=== PATIENT | female | born 1970 | race Caucasian/White ===

== ENCOUNTER → 2016-11-22 | Outpatient (CLI) | payer BC ==
--- NOTE | 2016-11-22 15:53 | CT ---
EXAMINATION TYPE: CT ChestAbdPelvis w con DATE OF EXAM: 11/22/2016 3:44 PM COMPARISON: 08/17/2016 HISTORY: f/u for anal cancer CT DLP: 1433.9 mGycm CONTRAST: CT scan of the chest, abdomen and pelvis is performed without Oral Contrast and with IV Contrast, pat ient injected with 100 mL of Omnipaque 300. CT Chest: LUNGS: The lungs are clear and free of infiltrate. Stable basilar compressive atelectasis. No pulmona ry nodule or mass is detected. No pleural effusion or CT evidence of interstitial lung disease. MEDIASTINUM: Thoracic aorta is of normal caliber. The heart is not enlarged. No evidence for media stinal mass or adenopathy. HILAR STRUCTURES: No evidence for mass. No hilar adenopathy is appreciated. OTHER: No significant abnormality. CONTRAST CT ABDOMEN AND PELVIS FINDINGS: LIVER/GB: Stable moderate compatible hepatic steatosis and mild hepatomegaly. No calcified gallston es. No space occupying hepatic lesion. Biliary tree is of normal caliber. PANCREAS: No inflammation. No distinct mass. SPLEEN: No splenic enlargement. No lesion seen. ADRENALS: No nodule. No thickening. KIDNEYS/BLADDER: No hydronephrosis. No nephrolithiasis. No disctinct renal mass. BOWEL: Rectal fullness described on prior examination is not clearly identified on today's examinatio n. Nonvisualization of the appendix. Normal bowel caliber. No inflammation. GENITAL ORGANS: Left-sided para Adnexal cystic lesion is stable and measures approximately 2.6 [address] Ut erus and ovaries are otherwise unremarkable. LYMPH NODES: No greater than 1cm abdominal or pelvic lymph nodes are appreciated. AORTA: No significant abnormality. OSSEOUS STRUCTURES: No significant abnormality is seen. OTHER: No significant additional abnormality is seen. IMPRESSION: 1. Rectal fullness described on prior examination is not clearly identified on today's examination. 2.Stable moderate compatible hepatic steatosis and mild hepatomegaly. 3. Stable left sided ovarian cystic lesion.
== END | disposition home or self-care (01) ==
LOC: RADCTMAIN 13:25
PROVIDERS: ATTEND Internal Medicine Hematology & Oncology
DX: C21.0 Malignant neoplasm of anus, unspecified (principal); K76.0 Fatty (change of) liver, not elsewhere classified; N83.202 Unspecified ovarian cyst, left side; R16.0 Hepatomegaly, not elsewhere classified
CPT/HCPCS: 71260; 74177; Q9967

== ENCOUNTER → 2017-03-07 | Outpatient (CLI) | payer BC ==
--- NOTE | 2017-03-07 14:13 | CT ---
EXAMINATION TYPE: CT ChestAbdPelvis w con DATE OF EXAM: 03/07/2017 COMPARISON: Previous study dated 11/22/2016. HISTORY: Follow up of anal cancer CT DLP: 2204 mGycm Automated exposure control for dose reduction was used. TECHNIQUE: Helical acquisition through the abdomen and pelvis was obtained without oral contrast but following the intravenous administration of 100 mL of Omnipaque 300. The data was formatted in the a xial, coronal and sagittal projections. FINDINGS: Lungs are clear. There is an injection port in the upper anterior chest. Its tip is at the cavoatrial junction. There is no significant axillary, internal mammary, mediastinal or hilar adenopathy. There is no pleural or pericardial fluid. The heart is not enlarged. Within the abdomen, the liver is mildly prominent measuring 17 cm. There is fatty infiltration of the liver. Gallbladder and spleen are normal. Both adrenal glands are normal. The pancreas is unremarkable. Both kidneys demonstrate function and are morphologically normal. There is no significant retroperitoneal, iliac or inguinal adenopathy. The bladder is unremarkable. Uterus and ovaries are normal. The large bowel appears normal on today's examination. The appendix is not visualized. Small bowel loops are normal. No free fluid and no free air is identified. There is hypertrophic spondylosis in the lower dorsal spine. No bony destructive lesion is seen. IMPRESSION: 1. NO EVIDENCE OF RECURRENT OR METASTATIC DISEASE. 2. MILD HEPATOMEGALY AND FATTY INFILTRATION OF THE LIVER. 3. DEGENERATIVE CHANGE WITHIN THE SPINE.
== END | disposition home or self-care (01) ==
LOC: RADCTMAIN 12:40
PROVIDERS: ATTEND Internal Medicine Hematology & Oncology
DX: C21.0 Malignant neoplasm of anus, unspecified (principal); K76.0 Fatty (change of) liver, not elsewhere classified
CPT/HCPCS: 36415; 71260; 74177; Q9967; J1642

== ENCOUNTER → 2017-07-18 | Outpatient (CLI) | payer BC ==
--- NOTE | 2017-07-18 12:37 | CT ---
EXAMINATION TYPE: CT ChestAbdPelvis w con DATE OF EXAM: 07/18/2017 COMPARISON: 03/07/2017 and 11/22/2016 HISTORY: Anal CA CT DLP: 2162.6 mGycm. Automated Exposure Control for Dose Reduction was Utilized. CONTRAST: CT scan of the thorax, abdomen and pelvis is performed with IV Contrast, patient injected with 100 mL of Omnipaque 300. FINDINGS: LUNGS: The lungs are grossly clear, there is no concerning parenchymal mass or nodule identified. T here is no pleural effusion or pneumothorax seen. The tracheobronchial tree is patent. Bibasilar sub segmental dependent atelectasis is seen, right greater than left. MEDIASTINUM: Triangular shaped soft tissue attenuation within the superior mediastinum likely relates to residual thymic tissue and is unchanged from the prior. There are no greater than 1 cm hilar or m ediastinal lymph nodes. Calcified left hilar lymph nodes are seen, also unchanged from the prior. Rig ht-sided Mediport terminates in the high right atrium. No pericardial effusion is seen. LIVER/GB: The liver is diffusely hypoattenuated and of decreased enhancement in comparison to that of the splenic parenchyma with focal fatty sparing in segment IVb surrounding the gallbladder fossa and along the fissure for the ligamentum teres. Hepatic steatosis is again moderate. This finding does l imit evaluation for hepatic masses. Gallbladder is unremarkable. PANCREAS: No significant abnormality is seen. No ductal dilatation. SPLEEN: No significant abnormality is seen. ADRENALS: No significant abnormality is seen. KIDNEYS: No significant abnormality is seen. BOWEL: No enlarged lymph nodes are seen within the mesorectal fat. There is no presacral edema or sof t tissue. Rectum is nondistended. No thickening of the sigmoid colon is seen although evaluation is s uboptimal as oral contrast has not extended into the descending colon or sigmoid colon and these port ions of the colon are nondilated. No bowel enlargement is seen. Small bowel is unremarkable. GENITAL ORGANS: The left ovary is similar to the prior exam measuring up to 2.7 cm. Right ovary is no t identified. Uterus is unremarkable LYMPH NODES: Prominent left periaortic lymph nodes measure up to 9 mm and are seen on series 3 image 63 through 71.. OSSEOUS STRUCTURES: Mild degenerative changes are seen of the thoracolumbar and lumbosacral spine. No new suspicious osseous lesions are seen. IMPRESSION: 1. Stable prominent left periaortic lymph nodes in comparison to the prior exam measuring up to 9 mm in short axis. 2. Rectum is incompletely distended and suboptimally evaluated, however no local lymphadenopathy, pre sacral soft tissue fullness, or mesorectal fat stranding is appreciated. 3. Unchanged moderate hepatic steatosis.
== END | disposition home or self-care (01) ==
LOC: RADPROMAIN 11:23
PROVIDERS: ATTEND Internal Medicine Hematology & Oncology
DX: C21.0 Malignant neoplasm of anus, unspecified (principal); K76.0 Fatty (change of) liver, not elsewhere classified
CPT/HCPCS: 71260; 74177; Q9967; J1642

== ENCOUNTER → 2017-11-23 | Outpatient (CLI) | payer BC ==
--- NOTE | 2017-11-23 11:07 | CT ---
EXAMINATION TYPE: CT ChestAbdPelvis w con DATE OF EXAM: 11/23/2017 COMPARISON: 07/18/2017 and 03/07/2017 HISTORY: 47-year-old female follow-up Carcinoma of anus TECHNIQUE: Contiguous axial scanning of the chest, abdomen, and pelvis performed with IV Contrast, pa tient injected with 100 ml mL of Omnipaque 300. Delayed images through the kidneys were obtained. Cor onal/sagittal reconstructions performed. CT DLP: 2214 mGycm Automated exposure control for dose reduction was used. FINDINGS: Chest: Right anterior chest wall injection port with catheter tip at the lower SVC. Heart normal size without pericardial effusion. Aorta normal caliber with conventional arch vessel branching anatomy. Stable soft tissue density anterior mediastinum suggestive of residual thymic tissue. No thoracic lym phadenopathy. Some focal patchy atelectasis/scarring posteromedial right lung base. No consolidation or pleural eff usion otherwise seen. No suspicious pulmonary nodule or mass is identified. ABDOMEN: Liver remains enlarged measuring 19.4 cm craniocaudal with diffuse low-attenuation. No focal liver le elizabeth or biliary ductal dilatation. Portal venous system is patent. Gallbladder, adrenal glands, kidneys, spleen, and pancreas appear within normal limits. Left periaortic lymph nodes appear slightly more full primarily when compared with 03/07/2017, for exam ple, measuring 1.5 and 1.4 cm, axial image 72. No new mesenteric or retroperitoneal lymphadenopathy. Pelvis: Bladder urine distended. Uterus and left ovary are visualized. Right ovary not well seen. Pelvic phle boliths. No abnormal fluid collection in the pelvis or pelvic lymphadenopathy identified. Bones: Mild degenerative changes at the hips and right SI joint. Mild endplate spondylosis lower thoracic sp ine. No osseous destructive process. IMPRESSION: 1. LEFT PARAAORTIC LYMPHADENOPATHY APPEARS SLIGHTLY MORE FULL COMPARED TO 03/07/2017 BUT RELATIVELY SIMILAR TO 07/18/2017 MEASURING UP TO 1.5 CM. CLOSE FOLLOW-UP RECOMMENDED TO EXCLUDE PROGRESSION IN M ETASTATIC DISEASE. 2. OTHERWISE, NO OTHER EVIDENCE FOR METASTATIC DISEASE. 3. REDEMONSTRATED HEPATOMEGALY AND HEPATIC STEATOSIS.
== END | disposition home or self-care (01) ==
LOC: RADCTMAIN 08:09
PROVIDERS: ATTEND Internal Medicine Hematology & Oncology
DX: C21.0 Malignant neoplasm of anus, unspecified (principal); K76.0 Fatty (change of) liver, not elsewhere classified; R16.0 Hepatomegaly, not elsewhere classified; R59.1 Generalized enlarged lymph nodes
CPT/HCPCS: 71260; 74177; Q9967; J1642

== ENCOUNTER → 2018-03-13 | Outpatient (CLI) | payer BC ==
--- NOTE | 2018-03-13 13:08 | CT ---
EXAMINATION TYPE: CT ChestAbdPelvis w con DATE OF EXAM: 03/13/2018 COMPARISON: CT Chest Abdomen Pelvis With November 23, 2017 and older studies. PET/CT January 31, 2016. HISTORY: Anal CA progress study. Diagnosed and treated in 2016. CT DLP: 1639.8 mGycm. Automated Exposure Control for Dose Reduction was Utilized. CONTRAST: CT scan of the thorax, abdomen and pelvis is performed with oral and with IV Contrast, patient inject ed with 100 mL of Isovue 300. FINDINGS: LUNGS: There is persistent medial right basilar scarring. There is no new suspicious nodularity or ma sses. No pleural effusion or pneumothorax is present bilaterally. Tracheobronchial tree is patent. MEDIASTINUM: There are no greater than 1 cm hilar or mediastinal lymph nodes. No cardiomegaly or pe ricardial effusion is seen. OTHER: There is stable right internal jugular Mediport catheter. LIVER/GB: Liver remains low dense consistent with fatty infiltration. PANCREAS: No significant abnormality is seen. SPLEEN: No significant abnormality is seen. ADRENALS: No significant abnormality is seen. KIDNEYS: No significant abnormality is seen. BOWEL: Oral contrast reaches level of the splenic flexure. There is no suspicious small or large ivana l dilatation. GENITAL ORGANS: Uterus is surgically absent LYMPH NODES: Scar tissue at level of right groin axial image 114 is redemonstrated. Abnormal retroper itoneal adenopathy is redemonstrated, some confluent adenopathy just below left renal artery is again seen from axial images 63 through 68. There is fullness in the aortocaval window. There is new ossif ic destruction of right L3 vertebra axial image 70. Confluent adenopathy is noted at this level. Near complete Encasement of aorta is seen. No new pelvic adenopathy is noted. OSSEOUS STRUCTURES: New ossific destruction right L3 vertebra from adjacent adenopathy is seen. No ad ditional lytic or sclerotic osseous lesions are identified. OTHER: No significant additional abnormality is seen. IMPRESSION: Progressive retroperitoneal adenopathy with new right-sided L3 destruction. Consider radi ation oncology referral and/or treatment. A Yellow level critical message alert has been initiated for Brian Delaney MD via the [employer] on 03/13/2018 1:05 PM. This message alert has been sent to Brian Delaney MD via [employer] preferences provided by the clinician for the receipt of Radiology Critical Findings. Message ID [id number].
== END ==
LOC: RADPROMAIN 09:59
PROVIDERS: ATTEND Internal Medicine Hematology & Oncology
DX: Z03.89 Encounter for observation for other suspected diseases and conditions ruled out (principal); C21.0 Malignant neoplasm of anus, unspecified; R59.0 Localized enlarged lymph nodes
CPT/HCPCS: 71260; 74177; J1642; Q9967

== ENCOUNTER → 2018-03-31 | Outpatient (CLI) | payer BC ==
[2018-03-31 16:23] LABS: Anion Gap 11 mmol/L; Basophils % (A) 1 %; Blood Urea Nitrogen 15 mg/dL (7-17); Calcium 9.7 mg/dL (8.4-10.2); Carbon Dioxide 31 mmol/L (22-30); Chloride 104 mmol/L (98-107); Eosinophils # (A) 0.1 k/uL (0-0.7); Eosinophils % (A) 2 %; Glucose 99 mg/dL (74-99); HCT 44.2 % (34.0-46.0); HGB 14.2 gm/dL (11.4-16.0); Lymphocytes # (A) 1.4 k/uL (1.0-4.8); Lymphocytes % (A) 22 %; MCH 29.4 pg (25.0-35.0); MCHC 32.2 g/dL (31.0-37.0); MCV 91.5 fL (80.0-100.0); Mean Platelet Volume 6.1; Monocytes # (A) 0.5 k/uL (0-1.0); Monocytes % (A) 7 %; Neutrophils # (A) 4.4 k/uL (1.3-7.7); Neutrophils % (A) 66 %; Platelet Count 330 k/uL (150-450); Potassium 4.5 mmol/L (3.5-5.1); RBC 4.83 m/uL (3.80-5.40); Sodium 146 mmol/L (137-145); WBC 6.6 k/uL (3.8-10.6)
[2018-03-31 16:27] LABS: Partial Thromboplastin Time 27.3 sec (22.0-30.0); Prothrombin Time 9.5 sec (9.0-12.0)
[2018-03-31 16:33] LABS: Appearance,Urine Clear (Clear); Bilirubin,Urine Negative (Negative); Blood,Urine Negative (Negative); Color,Urine Yellow; Glucose,Urine (UA) Negative (Negative); Ketones,Urine Negative (Negative); Leukocyte Esterase,Urine Negative (Negative); Nitrite,Urine Negative (Negative); PH, Urine 6.5 (5.0-8.0); Protein,Urine Negative (Negative); Specific Gravity,Urine 1.013 (1.001-1.035); Urobilinogen,Urine <2.0 mg/dL (<2.0)
== END | disposition home or self-care (01) ==
LOC: LABPAT 14:49
PROVIDERS: ATTEND Orthopaedic Surgery Orthopaedic Surgery of the Spine
DX: Z01.812 Encounter for preprocedural laboratory examination (principal); M89.8X9 Other specified disorders of bone, unspecified site
CPT/HCPCS: 80048; 81003; 85025; 85610; 85730; 87070; 93005

== ENCOUNTER 2018-04-03 14:16 | Day surgery (SDC) | payer BC ==
[~2018-04-03 14:16] MED LIST: DEXAMETHASONE SOD PHOSPHATE 10 MG/ML 1 ML VIAL IV ONE; LACTATED RINGERS 1,000 ML IV SCH; MIDAZOLAM 2 MG/2 ML VIAL IV PRN; ONDANSETRON 4 MG/2 ML VIAL IVP ONE; SCOPOLAMINE 1.5MG/72HR PATCH TRANSDERM ONE; ceFAZolin IN SWFI 2 GM/20 ML SYRINGE IVP ONE; fentaNYL (PF) 50 MCG/ML 2 ML AMP IV PRN
[2018-04-03] MEDS ORDERED: LIDOCAINE 1% 20 ML VIAL (10MG/ML) FOR IV START INTRADERMA ONE (14:34)
[2018-04-03] MEDS ORDERED: SUCCINYLCHOLINE CHLORIDE 100 MG/5 ML SYR IV ONE (16:56)
[2018-04-03] MEDS ORDERED: LIDOCAINE 1% INJ 10MG/ML (20 ML MDV) ONE (16:56)
[2018-04-03] MEDS ORDERED: KETOROLAC 30 MG/ML 1 ML VIAL ONE (16:56)
[2018-04-03] MEDS ORDERED: LABETALOL 5 MG/ML VIAL MDV ONE (16:56)
[2018-04-03] MEDS ORDERED: MORPHINE SULFATE 10 MG/ML SYRINGE ONE (16:56)
[2018-04-03] MEDS ORDERED: fentaNYL (PF) 50 MCG/ML 2 ML AMP ONE (16:56)
[2018-04-03] MEDS ORDERED: MIDAZOLAM 2 MG/2 ML VIAL ONE (16:56)
[2018-04-03] MEDS ORDERED: PROPOFOL 10 MG/ML 20 ML VIAL IV ONE (16:56)
[2018-04-03] MEDS ORDERED: BUPIVACAINE (PF) 0.5% 30 ML VIAL SQ ONE (17:23)
[2018-04-03] MEDS ORDERED: IOPAMIDOL-370 50ML BTL MISCELLANE ONE (17:24)
[2018-04-03] MEDS ORDERED: HYDROmorphone 0.5 MG/0.5 ML SYRINGE IVP PRN ×2 (17:50)
[2018-04-03] MEDS ORDERED: BENZOCAINE/MENTHOL LOZENG 1 EACH LOZENGE MUCOUS MEM PRN (17:50)
[2018-04-03] MEDS ORDERED: ONDANSETRON 4 MG/2 ML VIAL IVP PRN (17:51)
[2018-04-03] MEDS ORDERED: KETOROLAC 30 MG/ML 1 ML VIAL IVP PRN (17:51)
[2018-04-03] MEDS ORDERED: HYDROcodone/APAP 5-325MG 1 EACH TAB PO PRN ×2 (17:51)
[2018-04-03] MEDS ORDERED: IBUPROFEN 600 MG TAB PO PRN (17:51)
[2018-04-03] MEDS ORDERED: SODIUM CHLORIDE 0.9% 1,000 ML IV SCH (18:00)
--- NOTE | 2018-04-03 18:04 | P.OP ---
Date of Procedure: 04/03/18 Preoperative Diagnosis: L3 pathologic compression fracture Low back pain Postoperative Diagnosis: Same Anesthesia: GETA Pathology: other (L3 vertebral body biopsy sent to pathology in formalin, bone marrow aspirate of L3 sent to pathology) Condition: stable Disposition: PACU Description of Procedure: BRIEF OPERATIVE NOTE Preoperative Diagnosis: L3 pathologic compression fracture , low back pain Postoperative Diagnosis: Same Procedure: Vertebral body biopsy of L3 with bone marrow aspirate of L3 to be sent to pathology kyphoplasty of L3 Use of biplanar fluoroscopic guidance Surgeon: Dr. Virgen Library Science Instructor: Dustin Lee is present throughout the entire the case persistence during positioning, dissection, exposure, visualization, and all crucial elements of the case as well as closure. Anesthesia: General anesthesiaPer Dr. Howard Estimated blood loss: Less than 10 mL Specimen: Vertebral body biopsy sent to pathology in formalinAs well as a bone marrow aspirate approximately 5 mL Complications: None apparent Components implanted: Bone cement Disposition: To recovery room in good stable condition. OPERATIVE INDICATIONS The patient has been having issues in their back. And was found have evidence of a lytic lesion at L3 vertebral body. She has a history of anal cancer and underwent treatment in the past with her presumed care. However when she was found have this lytic lesion at L3 she has been having for further workup for potential treatment of the area and potential recurrence of the pathology. She is seen radiation oncology as well as oncology service and they asked us to obtain a vertebral body biopsy of the L3 vertebral body. I felt that the patient may have some benefit with kyphoplasty cement augmentation at the L3 vertebral body as well given her pain at her back. I conferred with oncology service as well and they were agreeable. We discussed various treatment options including surgery, and the patient wishes to proceed with surgery We discussed the risk, patient's alternatives and benefits of surgery including but not limited to, risk of bleeding risk of infection, risk of need for further surgery, risk of decreased, loss of motion, loss of function, cement extravasation, nerve damage, paralysis, heart attack, blindness and . OPERATIVE SUMMARY After discussing all the risks, patient alternatives and benefits at length, the patient elected to proceed with surgical intervention, signed informed consent, and presented for their procedure. The patient was seen and examined in the preoperative holding area and the surgical site was marked. The patient was given antibiotics and brought to the operating room. The patient was sedated and intubated by anesthesia in standard fashion. The patient was positioned on to the operating room table in a prone position on the appropriate well-padded and well molded bilateral chest rolls. We were careful to pad any bony prominences and pressure points. We were careful to maintain the patient's cervical spine and good neutral alignment and position throughout. We used 2 C-arm machines to establish biplanar fluoroscopic guidance in AP and lateral positions. We were able to localize the fractures appropriately At L3. The patient was prepped and draped in a normal standard fashion. An appropriate timeout and keystone protocol performed. We were able to proceed with the surgery. The local wound area was infiltrated with local anesthetic. An incision was made over the lateral aspect of the pedicle over the appropriate levels with a small 2 mm stab incision On the right side. Intraoperative fluoroscopy was taken which showed a marker at the appropriate level At L3. With the appropriate level positively confirmed, I was able to position a sharp trocar over the lateral aspect of the pedicle. As able to advance the trocar into the pedicle and into the posterior aspect of vertebral body being careful to avoid penetration cephalad caudad or medially. The trocar was placed appropriately into the posterior aspect of vertebral body at the appropriate levels At L3 on the right. This was confirmed with C-arm guidance. With the trocar intact I was then able to take a bone biopsy with a biopsy punch or a bony drill. there is very little bony substance remaining within the vertebral body of L3 and there was soft tissue material within the body of L3 though I was able to get a biopsy of and passed off for pathology. I also then aspirated approximately I cc of bone marrow aspirate to be sent to pathology as well. The biopsy specimen was passed off to be sent to pathology in formalin. I was then able to place the kyphoplasty balloon within the vertebral body. The position was checked on C-arm. I was able to inflate the balloon under low pressure and visualization with C-arm. The balloon was well enclosed within the vertebral body. The cement was prepared. With the cement at appropriate working condition the balloons were deflated and removed. I was able to place bony cement with trocar with the cement delivery device under low pressure. It had good fill within the vertebral body. There is no evidence of any extravasation of the cement posteriorly toward the canal. The cement was well contained at the appropriate levels Of L3. The cement was allowed to cure appropriately. The trochars removed and final images were taken on C-arm. This showed the cement at the appropriate levels. We were able to proceed with closure. The wound was cleaned and dried and dressed with the appropriate dressing. The drapes were broken down. The patient was gently rolled back onto their hospital bed being careful to maintain their cervical spine and good neutral alignment and position. They were woken up by anesthesia, extubated, and brought to the recovery room in good stable condition. The patient will be admitted to the hospital for observation and for appropriate postoperative care, medical management and monitoring. We will continue to follow them closely about the postoperative course.
[2018-04-03 18:05] VITALS: TEMP 97.2
[2018-04-03 18:13] VITALS: RESP 16
[2018-04-03 19:21] VITALS: BP 142/78; PULSE 92
--- NOTE | 2018-04-04 08:33 | FL ---
EXAMINATION TYPE: FL guidance operating room DATE OF EXAM: 04/03/2018 HISTORY: Flouroscopy time 43 seconds of fluoroscopy provided. IMPRESSION: 1. Fluoroscopy time.
== END 2018-04-03 19:48 | disposition home or self-care (01) ==
LOC: OR 14:16
PROVIDERS: ATTEND Orthopaedic Surgery Orthopaedic Surgery of the Spine
DX: C79.51 Secondary malignant neoplasm of bone (principal); C79.52 Secondary malignant neoplasm of bone marrow; M48.56XA Collapsed vertebra, not elsewhere classified, lumbar region, initial encounter for fracture; M48.061 Spinal stenosis, lumbar region without neurogenic claudication; M47.816 Spondylosis without myelopathy or radiculopathy, lumbar region; R53.1 Weakness; Z85.048 Personal history of other malignant neoplasm of rectum, rectosigmoid junction, and anus; Z92.3 Personal history of irradiation; Z92.21 Personal history of antineoplastic chemotherapy; Z87.891 Personal history of nicotine dependence
CPT/HCPCS: 88305; 88342; 88307; 88311; 88341; 22514; C1713; J2250; J1100; J2270; J2405; J2001; J3010; J1885; J0330; J2704; J0690; Q9967

== ENCOUNTER → 2018-04-08 | Outpatient (CLI) | payer BC ==
--- NOTE | 2018-04-10 12:14 | PE ---
Nuclear medicine PET/CT HISTORY: Anal carcinoma, subsequent Patient received 12.5 mCi F-18 intravenously in delayed scanning was performed from the skull base to the thighs. Localization and attenuation correction CT scan was performed. Correlation to CT chest abdomen pelvis 03/13/2018 Neck and chest: There is no evident lung mass. No adenopathy or suspicious hypermetabolic uptake. Rig ht-sided Port-A-Cath is present, distal tip is within the region of the cavoatrial junction. Abdomen pelvis: Low density within the liver likely represents hepatic steatosis. There are retroperi toneal nodes present. SUV range approximately 3.94 retrocrural node on the left to periaortic nodes o n the left, SUV 11. There may be involvement of the mid ureter on the left the retrocrural nodes, the re is left-sided hydronephrosis persisting. Only mild anal uptake, SUV 4.5. The lumbar vertebral body shows post vertebroplasty change and shows SUV 14.1. IMPRESSION: Metastatic disease as described.
== END | disposition home or self-care (01) ==
LOC: RADPETMAIN 11:31
PROVIDERS: ATTEND Internal Medicine Hematology & Oncology
DX: C21.0 Malignant neoplasm of anus, unspecified (principal); C79.9 Secondary malignant neoplasm of unspecified site
CPT/HCPCS: 78815; A9552

== ENCOUNTER → 2018-08-23 | Outpatient (CLI) | payer BC ==
[2018-08-23 11:11] LABS: Blood Urea Nitrogen 14 mg/dL (7-17)
--- NOTE | 2018-08-23 14:47 | CT ---
EXAMINATION TYPE: CT ChestAbdPelvis w con DATE OF EXAM: 08/23/2018 INDICATION: Follow up scan, anal carcinoma COMPARISON: PET/CT 04/08/2018 CT DLP: 2102 mGycm CONTRAST: Performed with Oral Contrast and with IV Contrast, patient injected with 100 mL of Isovue 300. TECHNIQUE: Axial images at 5 mm thick sections. Reconstructed images in the coronal plane. Delayed images through the kidneys. FINDINGS: CT CHEST: Portion of the thyroid visualized is normal. No suspicious lung nodules or focal infiltrates are present. No enlarged mediastinal or hilar adenopathy is evident. The ascending aorta diameter at the level of the main pulmonary artery is 2.8 cm. The main pulmonary artery diameter at the bifurcation is 2.[address] ABDOMEN: No suspicious enlarged adenopathy. Liver: There is moderate fatty infiltration to the liver. No discrete masses or cysts are evident. Spleen: Normal Pancreas: Normal Adrenal glands: The adrenal glands are normal. Gallbladder: Normal Kidneys: No masses are evident. No hydronephrosis is present. No cysts are present. Delayed images were obtained through the kidneys, which remain unremarkable. Aorta: Vascular calcification is within the aorta. Inferior vena cava: Normal. CT PELVIS: Loops of bowel within the abdomen and pelvis are normal. There are loops of bowel which are incom pletely distended or lack oral contrast limiting their evaluation. Appendix: Not identified. No suspicious tubular structures are evident. No inflammatory changes are e vident. Urinary bladder: Normal. Genitourinary structures: Uterus is unremarkable. Adnexal regions appear within normal limits. There may be a small cyst on the left ovary with a transverse dimension 1.0 cm. Osseous structures: No suspicious lytic or sclerotic lesions. Vertebral plasty is been performed L3. Some mild superior endplate compression of L2 is present. Some compression of T12 is present. No post erior wall displacement is evident. IMPRESSIONS: 1.
== END | disposition home or self-care (01) ==
LOC: RADPROMAIN 10:26
PROVIDERS: ATTEND Internal Medicine Hematology & Oncology
DX: Z03.89 Encounter for observation for other suspected diseases and conditions ruled out (principal); C21.0 Malignant neoplasm of anus, unspecified
CPT/HCPCS: 82565; 84520; 71260; 74177; J1642; Q9967

== ENCOUNTER → 2018-12-19 | Outpatient (CLI) | payer BC ==
--- NOTE | 2018-12-19 16:15 | CT ---
EXAMINATION TYPE: CT ChestAbdPelvis w con DATE OF EXAM: 12/19/2018 COMPARISON: 08/23/2018 and 04/08/2018 HISTORY: 48 year-old female follow-up Carcinoma anus. TECHNIQUE: Contiguous axial scanning of the chest, abdomen, and pelvis performed with IV Contrast, pa tient injected with 100 mL of Isovue M300. Delayed images through the kidneys were obtained. Coronal/ sagittal reconstructions performed. CT DLP: 2053.7 mGycm Automated exposure control for dose reduction was used. FINDINGS: CHEST: Heart normal size without pericardial effusion. Aorta normal caliber with conventional arch vessel branching anatomy. Right anterior chest wall injection port with catheter tip at the cavoatrial junction. No thoracic lymphadenopathy. Some strandy dependent areas of atelectasis. No consolidation or pleural effusion. ABDOMEN: Liver enlarged at 20.4 cm with marked low attenuation areas of focal fat along the gallbladder fossa. Portal venous system is patent. No biliary ductal dilatation. Gallbladder, adrenal glands, spleen, and pancreas appear within normal limits. Mild fullness of the bilateral renal collecting systems but with symmetric uptake and excretion of co ntrast from the kidneys arguing against any obstructive uropathy. No recurrent retroperitoneal lymphadenopathy is identified. Minimal residual soft tissue thickening a long the left periaortic region, for example, on for 2 axial image 75. No dilated small bowel, free fluid, or free air. No mesenteric lymphadenopathy. Oral contrast progres sed to the proximal sigmoid. No pericolonic inflammatory change. PELVIS: Bladder urine distended. Uterus and ovaries are visualized and no abnormal fluid collection in the pe lvis or pelvic lymphadenopathy seen. Left-sided pelvic phleboliths. BONES: Mild degenerative changes of the hips. Facet arthropathy mid to lower lumbar spine and endplate spond ylosis lower thoracic spine. Vertebral compression fracture of L3 vertebral body with prior vertebrop lasty change. Additional endplate deformities of T11, T12, L2 also remain unchanged. IMPRESSION: 1. NO RECURRENT RETROPERITONEAL OR OTHER LYMPHADENOPATHY OR OTHERWISE ANY EVIDENCE FOR METASTATIC DIS EASE. MINIMAL RESIDUAL SOFT TISSUE THICKENING ALONG THE LEFT PARA-AORTIC REGION IS UNCHANGED FROM . 2. HEPATOMEGALY (20.4 CM) WITH MARKED HEPATIC STEATOSIS.
== END | disposition home or self-care (01) ==
LOC: RADPROMAIN 13:01
PROVIDERS: ATTEND Internal Medicine Hematology & Oncology
DX: K76.0 Fatty (change of) liver, not elsewhere classified (principal); R16.0 Hepatomegaly, not elsewhere classified; C21.0 Malignant neoplasm of anus, unspecified
CPT/HCPCS: 71260; 74177; J1642; Q9967

== ENCOUNTER → 2019-04-02 | Outpatient (CLI) | payer BC ==
--- NOTE | 2019-04-02 13:21 | CT ---
EXAMINATION TYPE: CT ChestAbdPelvis w con DATE OF EXAM: 04/02/2019 COMPARISON: 12/19/2018 HISTORY: Follow up scan per patient CT DLP: 2169.8 mGycm Automated exposure control for dose reduction was used. CONTRAST: CT scan of the chest, abdomen and pelvis is performed with Oral Contrast and with IV Contrast, patien t injected with 100 mL of Isovue 300. FINDINGS: CHEST: Heart normal size without pericardial effusion. Aorta normal caliber with conventional arch vessel branching anatomy. Right anterior chest wall injection port with catheter tip at the cavoatrial junction. No thoracic lymphadenopathy. Some strandy dependent areas of atelectasis. No consolidation or pleural effusion. ABDOMEN: Liver enlarged at 20.4 cm with marked low attenuation areas of focal fat along the gallbladder fossa. Portal venous system is patent. No biliary ductal dilatation. Gallbladder, adrenal glands, spleen, and pancreas appear within normal limits. Mild fullness of the bilateral renal collecting systems but with symmetric uptake and excretion of co ntrast from the kidneys arguing against any obstructive uropathy. No recurrent retroperitoneal lymphadenopathy is identified. Minimal residual soft tissue thickening a long the left periaortic region, for example, on for 2 axial image 75. No dilated small bowel, free fluid, or free air. No mesenteric lymphadenopathy. Oral contrast progres sed to the proximal sigmoid. 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 TECHNIQUE: Contiguous axial scanning of the chest, abdomen, and pelvis performed with IV Contrast, patient injected with 100 mL of Isovue M300. Delayed images through the kidneys were obtained. Coronal/sagittal reconstructions performed. CT DLP: 2053.7 mGycm Automated exposure control for dose reduction was used. FINDINGS: CHEST: Heart normal size without pericardial effusion. Aorta normal caliber with conventional arch vessel branching anatomy. Right anterior chest wall injection port with catheter tip at the cavoatrial junction. No thoracic lymphadenopathy. Some strandy dependent areas of atelectasis. No consolidation or pleural effusion. ABDOMEN: Liver enlarged at 20.4 cm with marked low attenuation areas of focal fat along the gallbladder fossa. Portal venous system is patent. No biliary ductal dilatation. Gallbladder, adrenal glands, spleen, and pancreas appear within normal limits. Mild fullness of the bilateral renal collecting systems but with symmetric uptake and excretion of contrast from the kidneys arguing against any obstructive uropathy. No recurrent retroperitoneal lymphadenopathy is identified. Minimal residual soft tissue thickening along the left periaortic region. No dilated small bowel, free fluid, or free air. No mesenteric lymphadenopathy. Oral contrast progressed to the proximal sigmoid. No pericolonic inflammatory change. PELVIS: Bladder urine distended. Uterus and ovaries are visualized and no abnormal fluid collection in the pelvis or pelvic lymphadenopathy seen. Left-sided pelvic phleboliths. BONES: Mild degenerative changes of the hips. Facet arthropathy mid to lower lumbar spine and endplate spondylosis lower thoracic spine. Vertebral compression previous fracture of L3 vertebral body with prior vertebroplasty change. Additional endplate deformities of T11, T12, L2 also remain unchanged. IMPRESSION: 1. NO RECURRENT RETROPERITONEAL OR OTHER LYMPHADENOPATHY OR OTHERWISE ANY EVIDENCE FOR METASTATIC DIS EASE. MINIMAL RESIDUAL SOFT TISSUE THICKENING ALONG THE LEFT PARA-AORTIC REGION IS UNCHANGED FROM pre vious. 2. HEPATOMEGALY (20.4 CM) WITH MARKED HEPATIC STEATOSIS.
== END | disposition home or self-care (01) ==
LOC: RADPROMAIN 09:44
PROVIDERS: ATTEND Internal Medicine Hematology & Oncology
DX: K76.0 Fatty (change of) liver, not elsewhere classified (principal); M79.89 Other specified soft tissue disorders
CPT/HCPCS: 71260; 74177; J1642; Q9967

== ENCOUNTER → 2019-07-03 | Outpatient (CLI) | payer BC ==
--- NOTE | 2019-07-03 10:50 | CT ---
EXAMINATION TYPE: CT ChestAbdPelvis w con DATE OF EXAM: 07/03/2019 COMPARISON: April 02, 2019 HISTORY: Anal Cancer CT DLP: 2412 mGycm CONTRAST: CT scan of the chest, abdomen and pelvis is performed with Oral Contrast and with IV Contrast, patien t injected with 100 ml mL of Isovue 300. CT Chest: LUNGS: The lungs are clear and free of infiltrate or atelectasis. No pulmonary nodule or mass is det ected. No pleural effusion or CT evidence of interstitial lung disease. MEDIASTINUM: Thoracic aorta is of normal caliber. The heart is not enlarged. No evidence for media stinal mass or adenopathy. HILAR STRUCTURES: No evidence for mass. No hilar adenopathy is appreciated. OTHER: No significant abnormality. CONTRAST CT ABDOMEN AND PELVIS FINDINGS: LIVER/GB: Fatty liver noted with mild hepatomegaly. No calcified gallstones. No space occupying hep atic lesion. Biliary tree is of normal caliber. PANCREAS: No inflammation. No distinct mass. SPLEEN: No splenic enlargement. No lesion seen. ADRENALS: No nodule. No thickening. KIDNEYS/BLADDER: No hydronephrosis. No nephrolithiasis. No distinct renal mass. No evidence for tu mor recurrence. BOWEL: Normal appendix. Normal bowel caliber. No inflammation. GENITAL ORGANS: No gross abnormality. LYMPH NODES: No greater than 1cm abdominal or pelvic lymph nodes are appreciated. AORTA: No significant abnormality. OSSEOUS STRUCTURES: No significant abnormality is seen. OTHER: No significant additional abnormality is seen. IMPRESSION: 1. Fatty liver with hepatomegaly. No space-occupying lesion or metastatic disease identified at this time.
== END | disposition home or self-care (01) ==
LOC: RADPROMAIN 08:13
PROVIDERS: ATTEND Internal Medicine Hematology & Oncology
DX: C21.0 Malignant neoplasm of anus, unspecified (principal); K76.0 Fatty (change of) liver, not elsewhere classified; R16.0 Hepatomegaly, not elsewhere classified
CPT/HCPCS: 71260; 74177; J1642; Q9967

== ENCOUNTER → 2019-10-31 | Outpatient (CLI) | payer BC ==
--- NOTE | 2019-10-31 14:17 | CT ---
EXAMINATION TYPE: CT ChestAbdPelvis w con DATE OF EXAM: 10/31/2019 COMPARISON: 07/03/2019, 04/02/2019, and 12/19/2018 HISTORY: 49-year-old female Follow up Malignant neoplasm of anus, unspecified TECHNIQUE: Contiguous axial scanning of the chest, abdomen, and pelvis performed with IV Contrast, pa tient injected with 100 mL of Isovue 300. Delayed images through the kidneys were obtained. Coronal/s agittal reconstructions performed. CT DLP: 1942.8 mGycm Automated exposure control for dose reduction was used. FINDINGS: CHEST: Heart normal size without pericardial effusion. Aorta normal caliber with conventional arch vessel branching anatomy. Right anterior chest wall injection port with catheter tip at the cavoatrial junction. Some mild strandy soft tissue density anterior mediastinum is unchanged, likely either some residual or hyperplastic thymus. No thoracic lymphadenopathy by CT size criteria. Small calcified left hilar lymph nodes. Mild centrilobular emphysema. Mild dependent atelectasis posterior lung bases. No consolidation or pl eural effusion. ABDOMEN: Severe hepatic steatosis. No focal liver lesion identified. Portal venous system is patent. No biliar y ductal dilatation. Gallbladder, adrenal glands, kidneys, spleen, and pancreas appear within normal limits. No dilated small bowel, free fluid, or free air. No mesenteric or retroperitoneal lymphadenopathy. Mi nimal soft tissue thickening along the left retroperitoneum stable back to at least 12/19/2018. Oral contrast progressed to the cecum. Scattered multiple moderate stool in the right side of the col on. A couple diverticula within the proximal sigmoid. No pericolonic inflammatory change. PELVIS: Bladder is urine distended. Multiple pelvic phleboliths. Uterus is anteverted. What appears to be the left ovary is visualized. Right ovary not clearly seen. No abnormal fluid collection the pelvis or p elvic lymphadenopathy. BONES: Facet arthropathy lower lumbar spine. Prior vertebroplasty involving L3 vertebral body. Superior endp late is noted of T11 and L2 vertebral bodies as well as mild anterior wedging of T12 all unchanged ba ck to at least 12/19/2018 compatible with chronic injuries. IMPRESSION: 1. NO EVIDENCE FOR DISEASE RECURRENCE. MILD SOFT TISSUE THICKENING ALONG THE LEFT RETROPERITONEUM STA BLE BACK TO AT LEAST 12/19/2018. 2. COPD WITH MILD EMPHYSEMA. 3. SEVERE HEPATIC STEATOSIS REDEMONSTRATED.
== END | disposition home or self-care (01) ==
LOC: RADPROMAIN 09:45
PROVIDERS: ATTEND Internal Medicine Hematology & Oncology
DX: C21.0 Malignant neoplasm of anus, unspecified (principal); J43.9 Emphysema, unspecified; K76.0 Fatty (change of) liver, not elsewhere classified
CPT/HCPCS: 71260; 74177; J1642; Q9967

== ENCOUNTER → 2020-02-20 | Outpatient (CLI) | payer BC ==
[2020-02-20 18:56] LABS: Ferritin 809.3 ng/mL (10.0-291.0)
[2020-02-20 19:23] LABS: Hepatitis B Surface Antigen Non-Reactive (Non-Reactive); Hepatitis C IgG Antibody Non-Reactive (Non-Reactive)
[2020-02-20 20:03] LABS: % Iron Saturation 29.16 (12.00-45.00); African American GFR (CKD) 98.9 (60.0-200.0); Albumin 4.5 g/dL (3.80-4.90); Albumin/Globulin Ratio 2.14 (1.60-3.17); Anion Gap 10.8 mmol/L (4.00-12.00); BUN/Creat Ratio 16.25 Ratio (12.00-20.00); Calcium 9.7 mg/dL (8.7-10.3); Carbon Dioxide 28.2 mmol/L (21.6-31.8); Globulin 2.1 g/dL (1.6-3.3); Non-African American GFR(CKD) 85.4 (60.0-200.0); Potassium 4.3 mmol/L (3.5-5.5); Total Bilirubin 0.4 mg/dL (0.3-1.2); Total Protein 6.6 g/dL (6.2-8.2)
[2020-02-21 12:42] LABS: Ceruloplasmin 23.4 mg/dL (20.0-60.0)
[2020-02-21 15:24] LABS: ANA Pattern Centromere
== END | disposition home or self-care (01) ==
LOC: LABWHC1 10:37
PROVIDERS: ATTEND Internal Medicine Gastroenterology
DX: K76.0 Fatty (change of) liver, not elsewhere classified (principal); R94.5 Abnormal results of liver function studies
CPT/HCPCS: 36415; 80053; 82103; 82390; 82728; 83516; 83540; 83550; 86038; 86039; 86803; 87340

== ENCOUNTER → 2020-02-28 | Outpatient (CLI) | payer BC ==
--- NOTE | 2020-02-28 14:22 | CT ---
EXAMINATION TYPE: CT ChestAbdPelvis w con DATE OF EXAM: 02/28/2020 COMPARISON: 10/31/2019, 07/03/2019, 04/02/2019 HISTORY: 49-year-old female follow up anal cancer TECHNIQUE: Contiguous axial scanning of the chest, abdomen, and pelvis performed with IV Contrast, pa tient injected with 100 mL of Isovue 300. Delayed images through the kidneys were obtained. Coronal/s agittal reconstructions performed. CT DLP: 2062.6 mGycm Automated exposure control for dose reduction was used. FINDINGS: CHEST: Heart normal size without pericardial effusion. Aorta normal caliber with conventional arch vessel branching anatomy. Right anterior chest wall injection port with catheter tip at the cavoatrial junction. Some mild strandy soft tissue density anterior mediastinum is unchanged, likely either some residual or hyperplastic thymus. No thoracic lymphadenopathy by CT size criteria. Small calcified left hilar lymph nodes. Minimal centrilobular emphysema. Mild dependent atelectasis posterior lung bases. No consolidation or pleural effusion. ABDOMEN: Severe hepatic steatosis. Some fatty sparing along the gallbladder fossa. No focal liver lesion ident ified. Portal venous system is patent. No biliary ductal dilatation. Gallbladder, adrenal glands, kidneys, spleen, and pancreas appear within normal limits. No dilated small bowel, free fluid, or free air. No mesenteric or retroperitoneal lymphadenopathy. Minimal soft tissue thickening along the left retroperitoneum stable back to at least 12/19/2018. Oral contrast progressed to the cecum. Scattered mild to moderate stool in the right side of the colo n. A couple diverticula within the proximal sigmoid. No pericolonic inflammatory change. PELVIS: Bladder is urine distended. Multiple pelvic phleboliths. Uterus is anteverted. What appears to be the left ovary is visualized. Right ovary not clearly seen. No abnormal fluid collection the pelvis. 1.4 cm heterogeneous nodularity along the right lateral aspect of the rectosigmoid junction, axial image 100 was present in retrospect on 10/31/2019 but not seen prior to that with certainty. BONES: Facet arthropathy lower lumbar spine. Prior vertebroplasty involving L3 vertebral body. Superior endp late deformity is noted of T11 and L2 vertebral bodies as well as mild anterior wedging of T12 all un changed back to at least 12/19/2018 compatible with chronic injuries. IMPRESSION: 1. A 1.4 CM HETEROGENEOUS NODULE ALONG THE RIGHT LATERAL ASPECT OF THE RECTOSIGMOID JUNCTION WAS PRES ENT IN RETROSPECT ON 10/31/2019 AND IS STABLE FROM THEN. NOT SEEN PRIOR TO THAT WITH CERTAINTY. REASSE SS ON FOLLOW-UP. 2. OTHERWISE, STABLE EXAM WITHOUT EVIDENCE FOR RECURRENT DISEASE. 3. SEVERE HEPATIC SEQUENCES.
== END | disposition home or self-care (01) ==
LOC: RADPROMAIN 10:50
PROVIDERS: ATTEND Internal Medicine Hematology & Oncology
DX: K63.89 Other specified diseases of intestine (principal); C21.0 Malignant neoplasm of anus, unspecified
CPT/HCPCS: 71260; 74177; Q9967

== ENCOUNTER → 2020-07-21 | Outpatient (CLI) | payer BC ==
--- NOTE | 2020-07-22 12:57 | CT ---
EXAMINATION TYPE: CT ChestAbdPelvis w con DATE OF EXAM: 07/21/2020 COMPARISON: CT chest abdomen pelvis 02/28/2020 HISTORY: Anal cancer, bone cancer-per patient CT DLP: 2130.5 mGycm Automated exposure control for dose reduction was used. CONTRAST: CT scan of the chest, abdomen and pelvis is performed with Oral Contrast and with IV Contrast, patien t injected with 100 mL of Isovue 300. FINDINGS: LUNGS: The lungs are grossly clear, there is no concerning parenchymal mass or nodule identified. Mi ld bibasilar atelectasis. There is no pleural effusion or pneumothorax seen. The tracheobronchial tr ee is patent. MEDIASTINUM/SOFT TISSUES: Right-sided MediPort distal tip in the cavoatrial junction. No axillary, hi lar, or mediastinal lymphadenopathy greater than 1 cm. Cardiac size is normal. No pericardial effusio n. No thoracic aortic aneurysm. LIVER: Fatty liver. BILIARY SYSTEM: Normal. PANCREAS: Normal. SPLEEN: Normal. ADRENALS: Normal. KIDNEYS: Normal. BOWEL: No obstruction, inflammation, or thickening. There is a 1.1 x 1.0 cm ovoid structure adjacent to the rectosigmoid colon (3:106-107) which was described on 02/2020 comparison, is unchanged versus 08/23/2018 comparison, likely benign, and may represent diverticulum. Colonic calculus. No acute dive rticulitis. PERITONEUM: No pneumoperitoneum. No free fluid. LYMPH NODES: No lymphadenopathy. PELVIS: Normal. VASCULATURE: No abdominal aortic aneurysm. MUSCULOSKELETAL: No aggressive osseous destructive lesions.. Degenerative changes of the spine. Decr eased osseous mineralization. Multilevel compression deformities and kyphoplasty changes are unchange d versus 02/20/2020. IMPRESSION: 1. No evidence of recurrent or metastatic anal cancer of the chest, abdomen, or pelvis. 2. Previously described nodule at the rectosigmoid junction on 02/20/2020 comparison is unchanged erica yogesh 08/23/2018, and likely a diverticulum. 3. Fatty liver.
== END | disposition home or self-care (01) ==
LOC: RADPROMAIN 10:30
PROVIDERS: ATTEND Internal Medicine Hematology & Oncology
DX: K76.0 Fatty (change of) liver, not elsewhere classified (principal); C21.0 Malignant neoplasm of anus, unspecified
CPT/HCPCS: 71260; 74177; J1642; Q9967

== ENCOUNTER → 2021-01-12 | Outpatient (CLI) | payer BC, MEDICARE ==
--- NOTE | 2021-01-12 13:59 | CT ---
EXAMINATION TYPE: CT ChestAbdPelvis w con DATE OF EXAM: 01/12/2021 COMPARISON: 07/21/2020 and 02/28/2020 HISTORY: 50-year-old female with anal cancer, C21.0. TECHNIQUE: Contiguous axial scanning of the chest, abdomen, and pelvis performed with IV Contrast, pa tient injected with 100 mL of Isovue 300. Delayed images through the kidneys were obtained. Coronal/s agittal reconstructions performed. CT DLP: 2341.9 mGycm Automated exposure control for dose reduction was used. FINDINGS: CHEST: Right anterior chest wall ejection port with catheter tip at the lower SVC. Heart normal size without pericardial effusion. Aorta normal caliber with conventional arch vessel branching anatomy. No thoracic lymphadenopathy by CT size criteria. Mild upper lung centrilobular emphysema. Some strandy atelectasis in the lower lungs. No consolidatio n or pleural effusion. ABDOMEN: Tiny hiatal hernia. Liver enlarged measuring 19.4 cm. Diffuse low-attenuation of the hepatic parenchyma. No focal liver l esions seen. Portal venous system is patent. No biliary ductal dilatation. Gallbladder, adrenal glands, spleen, and pancreas within normal limits. Small bilateral extrarenal pelves within the kidneys. No mesenteric or retroperitoneal lymphadenopathy. No dilated small bowel, free fluid, or free air. Moderate stool within the right side of the colon. Minimal diverticular change along the proximal and distal sigmoid colon. No pericolic inflammatory change. PELVIS: Bladder urine distended. Uterus anteverted. Left ovary is visualized. Right ovary not clearly delinea mary anne from adjacent bowel loops. No abnormal fluid collection in the pelvis or pelvic lymphadenopathy. BONES: Mild degenerative change of the hips. Facet arthropathy mid to lower lumbar spine.. Superior and inferior endplate deformities of T12 remains unchanged. Superior endplate deformity T11 and L2 remains unchanged. Superior endplate deformity of L1 is new from 02/28/2020 but progressed from 07/21/2020. Prior vertebroplasty change of L3. IMPRESSION: 1. NO EVIDENCE FOR METASTATIC DISEASE IN THE CHEST, ABDOMEN, OR PELVIS. 2. MILD HEPATOMEGALY (19.4 CM) WITH HEPATIC STEATOSIS. 3. TINY HIATAL HERNIA, MILD EMPHYSEMATOUS CHANGE IN THE UPPER LUNGS, AND MILD DIVERTICULAR CHANGE OF THE SIGMOID COLON. 4. MULTIPLE LOWER THORACIC AND LUMBAR ENDPLATE DEFORMITIES. PREVIOUS L3 VERTEBROPLASTY CHANGE. SUPERI OR ENDPLATE DEFORMITY OF L1 IS NEW FROM 02/28/2020 AND PROGRESSED FROM 07/21/2020 BUT MAY BE CHRONIC A T THIS POINT.
== END | disposition home or self-care (01) ==
LOC: RADPROMAIN 10:40
PROVIDERS: ATTEND Internal Medicine Hematology & Oncology
DX: Z03.89 Encounter for observation for other suspected diseases and conditions ruled out (principal); C21.0 Malignant neoplasm of anus, unspecified; K76.0 Fatty (change of) liver, not elsewhere classified; K44.9 Diaphragmatic hernia without obstruction or gangrene; K57.30 Diverticulosis of large intestine without perforation or abscess without bleeding; J43.9 Emphysema, unspecified
CPT/HCPCS: 71260; 74177; J1642; Q9967

== ENCOUNTER → 2021-07-24 | Outpatient (CLI) | payer BC ==
[2021-07-24 14:58] LABS: African American GFR (CKD) >90 (>60 ml/min/1.73 sqM); Blood Urea Nitrogen 12 mg/dL (7-17); Non-African American GFR(CKD) >90 (>60 ml/min/1.73 sqM)
--- NOTE | 2021-07-26 22:48 | CT ---
EXAMINATION TYPE: CT ChestAbdPelvis wo/w con DATE OF EXAM: 07/24/2021 COMPARISON: 01/12/2021, 07/21/2020 HISTORY: 50-year-old female C21.0, Carcinoma of anus. TECHNIQUE: Contiguous axial scanning of the chest, abdomen, and pelvis performed without and with IV Contrast, patient injected with 100 mL of Isovue M300. Delayed images through the kidneys were obtain ed. Coronal/sagittal reconstructions performed. CT DLP: 3407.3 mGycm Automated exposure control for dose reduction was used. FINDINGS: CHEST: Right anterior chest wall injection port with catheter tip at the lower SVC. Heart normal size without pericardial effusion. Aorta normal caliber with conventional arch vessel branching anatomy. No thoracic lymphadenopathy by CT size criteria. Hazy dependent atelectasis. Mild emphysematous change. No consolidation or effusion. ABDOMEN: Hepatomegaly of 18.9 cm with low attenuation compatible with fatty infiltration. No focal liver lesio n seen. Portal venous system is patent. No biliary ductal dilatation. Gallbladder, adrenal glands, kidneys, spleen, and pancreas within normal limits. Bilateral extrarenal pelves are unchanged. No dilated small bowel, free fluid, or free air. No mesenteric or retroperitoneal lymphadenopathy. Bilateral stool burden. All contrast progressed into the proximal sigmoid colon. No pericolonic infla mmatory change. Mild diverticular change distal sigmoid colon. Mild atherosclerotic calcifications abdominal aorta without aneurysm. PELVIS: Bladder urine distended. Uterus anteverted. Left ovary is visualized. Right ovary not clearly delinea mary anne. Pelvic phlebolith. No abnormal fluid collection in the pelvis or pelvic lymphadenopathy. BONES: Mild degenerative change at the hips. Mild degenerative change right SI joint. Facet arthropathy lowe r lumbar spine. Redemonstrated are multiple lower thoracic and lumbar vertebral endplate deformities. Prior vertebrop lasty change at L3. No significant change from prior exam. IMPRESSION: 1. NO EVIDENCE FOR METASTATIC DISEASE WITHIN THE CHEST, ABDOMEN, OR PELVIS. 2. MILD HEPATOMEGALY (18.9 CM) WITH HEPATIC STEATOSIS, COPD WITH MILD EMPHYSEMA, AND MINIMAL DIVERTIC ULAR CHANGES DISTAL SIGMOID. 3. MULTIPLE LOWER THORACIC AND LUMBAR ENDPLATE DEFORMITIES REDEMONSTRATED, UNCHANGED FROM PREVIOUS.
== END | disposition home or self-care (01) ==
LOC: RADPROMAIN 12:35
PROVIDERS: ATTEND Internal Medicine Hematology & Oncology
DX: C21.0 Malignant neoplasm of anus, unspecified (principal); J44.9 Chronic obstructive pulmonary disease, unspecified; R16.0 Hepatomegaly, not elsewhere classified; K76.0 Fatty (change of) liver, not elsewhere classified; K12.31 Oral mucositis (ulcerative) due to antineoplastic therapy; B37.0 Candidal stomatitis; Z71.3 Dietary counseling and surveillance
CPT/HCPCS: 82565; 84520; 71270; 74178; J1642; Q9967 ×2

== ENCOUNTER → 2022-01-25 | Outpatient (CLI) | payer BC ==
[2022-01-25 14:17] LABS: African American GFR (CKD) >90 (>60 ml/min/1.73 sqM); Blood Urea Nitrogen 13 mg/dL (7-17); Non-African American GFR(CKD) >90 (>60 ml/min/1.73 sqM)
--- NOTE | 2022-01-25 16:15 | CT ---
EXAMINATION TYPE: CT ChestAbdPelvis w con DATE OF EXAM: 01/25/2022 COMPARISON: 07/24/2021 HISTORY: C21.[address] DLP: 1953.80 mGycm CONTRAST: CT scan of the chest, abdomen and pelvis is performed with Oral Contrast and with IV Contrast, patien t injected with 100 mL of Isovue 300. CT Chest: LUNGS: The lungs are clear and free of infiltrate or atelectasis. No pulmonary nodule or mass is det ected. No pleural effusion or CT evidence of interstitial lung disease. MEDIASTINUM: Thoracic aorta is of normal caliber. The heart is not enlarged. No evidence for media stinal mass or adenopathy. HILAR STRUCTURES: No evidence for mass. No hilar adenopathy is appreciated. OTHER: No significant abnormality. CONTRAST CT ABDOMEN AND PELVIS FINDINGS: LIVER/GB: Hepatic steatosis with hepatomegaly. No calcified gallstones. No space occupying hepatic lesion. Biliary tree is of normal caliber. PANCREAS: No inflammation. No distinct mass. SPLEEN: No splenic enlargement. No lesion seen. ADRENALS: No nodule. No thickening. KIDNEYS/BLADDER: No hydronephrosis. No nephrolithiasis. No distinct renal mass. BOWEL: Normal appendix. Normal bowel caliber. No inflammation. No visible anorectal mass. GENITAL ORGANS: No gross abnormality. LYMPH NODES: No greater than 1cm abdominal or pelvic lymph nodes are appreciated. AORTA: No significant abnormality. OSSEOUS STRUCTURES: Stable chronic appearing compression fracture of L3. OTHER: No significant additional abnormality is seen. IMPRESSION: 1. No evidence for metastatic disease at this time.
== END | disposition home or self-care (01) ==
LOC: RADPROMAIN 10:30
PROVIDERS: ATTEND Internal Medicine Hematology & Oncology
DX: C21.0 Malignant neoplasm of anus, unspecified (principal); K12.31 Oral mucositis (ulcerative) due to antineoplastic therapy; B37.0 Candidal stomatitis; Z71.3 Dietary counseling and surveillance
CPT/HCPCS: 82565; 84520; 71260; 74177; Q9967

== ENCOUNTER → 2022-07-23 | Outpatient (CLI) | payer OTHER ==
[2022-07-23 13:11] LABS: African American GFR (CKD) >90 (>60 ml/min/1.73 sqM); Blood Urea Nitrogen 15 mg/dL (7-17); Non-African American GFR(CKD) >90 (>60 ml/min/1.73 sqM)
--- NOTE | 2022-07-23 21:58 | CT ---
EXAMINATION TYPE: CT ChestAbdPelvis w con DATE OF EXAM: 07/23/2022 COMPARISON: 01/25/2022, 07/24/2021 HISTORY: 51-year-old female C21.0, Malignant neoplasm of anus TECHNIQUE: Contiguous axial scanning of the chest, abdomen, and pelvis performed with IV Contrast, pa tient injected with 70ml mL of Isovue 300. Delayed images through the kidneys were obtained. Coronal/ sagittal reconstructions performed. CT DLP: 1854.7 mGycm Automated exposure control for dose reduction was used. FINDINGS: CHEST: Heart normal size without pericardial effusion. Aorta normal caliber and conventional arch vessel branching anatomy. Right anterior chest wall injection port with catheter tip at the cavoatrial junction. No thoracic lymphadenopathy by CT size criteria. Mild upper lung centrilobular emphysema. Dependent atelectasis noted. No consolidation or pleural eff usion. ABDOMEN: Liver enlarged at 19.3 cm with diffuse low attenuation. No focal lesion seen. Portal venous system is patent. No biliary ductal dilatation. Gallbladder, adrenal glands and kidneys, spleen, and pancreas within normal limits. Mild soft tissue in the left periaortic region remains unchanged. Mild atherosclerotic calcifications infrarenal abdominal aorta and common iliac arteries. No dilated small bowel, free fluid, or free air. No mesenteric or retroperitoneal lymphadenopathy. No significant stool burden. Oral contrast progressed to the rectum. Mild diverticulosis proximal sig moid colon. No pericolonic inflammatory change. PELVIS: Numerous pelvic phlebolith. Bladder urine distended. Uterus anteverted. Left ovary is visualized. Rig ht ovary not clearly delineated. No abnormal fluid collection in the pelvis or pelvic lymphadenopathy . BONES: Mild to moderate degenerative change of both hips. Multiple vertebral compression deformities T11-L3 levels. In addition the lower thoracic spine. Prior vertebroplasty change of L3. IMPRESSION: 1. STABLE EXAM WITHOUT EVIDENCE FOR METASTATIC DISEASE. 2. INCIDENTAL: MINIMAL EMPHYSEMATOUS CHANGE, HEPATIC STEATOSIS, MILD SIGMOID DIVERTICULOSIS, AND STAB LE MULTIPLE COMPRESSION DEFORMITIES FROM T11 THROUGH L3 LEVELS.
== END | disposition home or self-care (01) ==
LOC: RADPROMAIN 12:19
PROVIDERS: ATTEND Internal Medicine Hematology & Oncology
DX: C21.0 Malignant neoplasm of anus, unspecified (principal); Z03.89 Encounter for observation for other suspected diseases and conditions ruled out
CPT/HCPCS: 82565; 84520; 71260; 74177; J1642; Q9967

== ENCOUNTER → 2023-01-17 | Outpatient (CLI) | payer OTHER ==
[2023-01-17 13:30] LABS: African American GFR (CKD) >90 (>60 ml/min/1.73 sqM); Blood Urea Nitrogen 14 mg/dL (7-17); Non-African American GFR(CKD) >90 (>60 ml/min/1.73 sqM)
--- NOTE | 2023-01-17 15:01 | CT ---
EXAMINATION TYPE: CT ChestAbdPelvis w con CT DLP: 1600.1 mGycm, Automated exposure control for dose reduction was used. DATE OF EXAM: 01/17/2023 1:52 PM COMPARISON: Multiple CT chest abdomen pelvis with most recent 07/23/2022 CLINICAL INDICATION:Female, 52 years old with history of C21.0 MALIGNANT NEOPLASM OF ANUS, UNSPECIFIE D; PHH, Anal cancer Technique: Multiple axial images of the chest, abdomen, and pelvis were obtained following the intrav enous administration of 100 mL Isovue-300. Oral contrast was administered. Two-dimensional coronal an d sagittal reconstructions were obtained. Findings: CHEST: LUNGS/ PLEURA: No pleural effusion, pneumothorax, focal consolidation. Mild upper lung centrilobular emphysema. No suspicious pulmonary nodules or masses. AIRWAY: Patent and unremarkable.. HEART: Size within normal limits. . MEDIASTINUM: No gross evidence of adenopathy. VASCULATURE: No aortic aneurysm. Right chest wall Mediport catheter with distal tip terminating in t he superior cavoatrial junction. MUSCULOSKELETAL: No acute osseous abnormalities. SOFT TISSUES/LYMPH NODES: Unremarkable. LOWER NECK: No significant findings. ABDOMEN: ABDOMEN LIVER: Diffusely hypoattenuating parenchyma. No focal lesion. GALLBLADDER AND BILE DUCTS: Unremarkable. PANCREAS: Unremarkable. SPLEEN: Unremarkable. ADRENAL GLANDS: Unremarkable. KIDNEYS AND URETERS: No evidence of hydronephrosis or renal calculus. The ureters are unremarkable. PELVIS BLADDER: Unremarkable REPRODUCTIVE: Unremarkable. ABDOMEN & PELVIS STOMACH AND BOWEL: Stomach and duodenum are unremarkable. Enteric contrast reaches the ascending colo n. No focal wall thickening or surrounding inflammatory changes. No evidence of bowel obstruction. PERITONEUM: No evidence of pneumoperitoneum or free fluid. VASCULATURE: Mild atherosclerotic calcifications are present throughout the abdominal aorta and its b ranches. No abdominal aortic aneurysm. Pelvic phleboliths. Mild soft tissue in the left periaortic re gion remains unchanged. MUSCULOSKELETAL: No acute osseous abnormalities. Moderate to moderate degenerative changes of both hi ps. Multilevel vertebral compression deformities T11-L3 redemonstrated. Prior vertebroplasty changes of L3. No aggressive osseous lesion. LYMPH NODES: No gross evidence for lymphadenopathy. SOFT TISSUE/ABDOMINAL WALL: Unremarkable IMPRESSION: 1. Overall stable examination without evidence for metastatic disease. No pathologic adenopathy. 2. Stable multiple compression deformity from T11 through L3 levels. 3. Hepatic steatosis. 4. Minimal emphysematous changes.
== END | disposition home or self-care (01) ==
LOC: RADCTMAIN 11:59
PROVIDERS: ATTEND Internal Medicine Hematology & Oncology
DX: C21.0 Malignant neoplasm of anus, unspecified (principal); J43.9 Emphysema, unspecified; M48.54XA Collapsed vertebra, not elsewhere classified, thoracic region, initial encounter for fracture; K12.31 Oral mucositis (ulcerative) due to antineoplastic therapy; B37.0 Candidal stomatitis; Z71.3 Dietary counseling and surveillance; K76.0 Fatty (change of) liver, not elsewhere classified
CPT/HCPCS: 82565; 84520; 71260; 74177; 36415; Q9967

== ENCOUNTER → 2023-07-19 | Outpatient (CLI) | payer OTHER ==
--- NOTE | 2023-07-22 10:24 | CT ---
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 TECHNIQUE: Axial images at 5 mm thick sections. Reconstructed images in the coronal plane. Delayed images through the kidneys. FINDINGS: CT CHEST: Portion of the thyroid visualized is normal. No suspicious lung nodules or focal infiltrates are present. No enlarged mediastinal or hilar adenopathy is evident. The ascending aorta diameter at the level of the main pulmonary artery is 2.8 cm. The main pulmonary artery diameter at the bifurcation is 2.[address] ABDOMEN: Liver: Some mild fatty infiltration of the liver may be present. Spleen: Normal Pancreas: Normal Adrenal glands: The adrenal glands are normal. Gallbladder: Normal Kidneys: No masses are evident. No hydronephrosis is present. Tiny cortical renal cyst is on the an terior left upper kidney Delayed images were obtained through the kidneys, which remain unremarkable . Aorta: Vascular calcification is within the aorta. Inferior vena cava: Normal. CT PELVIS: Loops of bowel within the abdomen and pelvis are normal. There are loops of bowel which are incom pletely distended or lack oral contrast limiting their evaluation. Appendix: Not identified. No dilated tubular structure or inflammatory changes. Urinary bladder: Normal. Genitourinary structures: Uterus is unremarkable. Adnexa within normal limits. Osseous structures: No suspicious lytic or sclerotic lesions. Facet degenerative changes are within t he lumbar spine. May be vertebroplasty of a compressed L3 vertebral body. Superior endplate changes a re present L2. Compression deformity of T12 is evident. IMPRESSION: 1. No suspicious changes to suggest recurrent or metastatic neoplasm
== END | disposition home or self-care (01) ==
LOC: RADPROMAIN 13:21
PROVIDERS: ATTEND Internal Medicine Hematology & Oncology
DX: C21.0 Malignant neoplasm of anus, unspecified (principal); K12.31 Oral mucositis (ulcerative) due to antineoplastic therapy; B37.0 Candidal stomatitis; Z71.3 Dietary counseling and surveillance
CPT/HCPCS: 71260; 74177; J1642; Q9967

== ENCOUNTER 2023-10-04 09:26 | Day surgery (SDC) | payer MEDICARE, OTHER ==
[2023-09-30 09:31] VITALS: BMI 35.6
[~2023-10-04 09:26] MED LIST changes: +ACETAMINOPHEN TAB 500 MG TAB PO PRN; -DEXAMETHASONE SOD PHOSPHATE 10 MG/ML 1 ML VIAL IV ONE; +HEPARIN SODIUM,PORCINE 5,000 UNIT/ML 1 ML VIAL SQ PRN; -LACTATED RINGERS 1,000 ML IV SCH; -MIDAZOLAM 2 MG/2 ML VIAL IV PRN; -ONDANSETRON 4 MG/2 ML VIAL IVP ONE; -SCOPOLAMINE 1.5MG/72HR PATCH TRANSDERM ONE; -ceFAZolin IN SWFI 2 GM/20 ML SYRINGE IVP ONE; -fentaNYL (PF) 50 MCG/ML 2 ML AMP IV PRN
[2023-10-04] MEDS ORDERED: DEXAMETHASONE SOD PHOSPHATE 4 MG/ML 1 ML VIAL IV ONE (09:48)
[2023-10-04] MEDS ORDERED: LACTATED RINGERS 1,000 ML IV SCH (09:48)
[2023-10-04] MEDS ORDERED: HYDROmorphone 0.5 MG/0.5 ML SYRINGE IVP PRN (09:48)
[2023-10-04] MEDS ORDERED: MIDAZOLAM 2 MG/2 ML VIAL IV PRN (09:48)
[2023-10-04] MEDS ORDERED: LIDOCAINE 1% (10MG/ML) FOR IV START INTRADERMA PRN (09:48)
[2023-10-04] MEDS ORDERED: ONDANSETRON 4 MG/2 ML VIAL IVP ONE ×2 (09:48→10:21)
[2023-10-04] MEDS ORDERED: fentaNYL (PF) 50 MCG/ML 2 ML AMP IV PRN (09:48)
[2023-10-04] MEDS ORDERED: ONDANSETRON 4 MG/2 ML VIAL ONE (09:57)
[2023-10-04] MEDS ORDERED: LACTATED RINGERS 1,000 ML IV ONE (10:05)
[2023-10-04 10:14] VITALS: RESP 16; TEMP 97.8
[2023-10-04] MEDS ORDERED: HEPARIN SODIUM,PORCINE 5,000 UNIT/ML 1 ML VIAL SQ ONE (10:21)
[2023-10-04] MEDS ORDERED: DEXAMETHASONE SOD PHOSPHATE 4 MG/ML 1 ML VIAL IVP ONE (10:21)
[2023-10-04] MEDS ORDERED: ACETAMINOPHEN TAB 500 MG TAB PO ONE (10:21)
--- NOTE | 2023-10-04 11:30 | P.GSHP ---
History of Present Illness H&P Date: 10/04/23 Chief Complaint: History of anal squamous cell cancer This a 52-year-old female is appears history of anus squamous cell cancer. Patient presents today for Port-A-Cath removal. Past Medical History Past Medical History: Cancer, Osteoarthritis (OA) Additional Past Medical History / Comment(s): anal cancer January 2016 and cancer L-3 had chemo & radiation (last 2017).,fatty liver History of Any Multi-Drug Resistant Organisms: None Reported Past Surgical History: Section, Tubal Ligation, Uterine Ablation Additional Past Surgical History / Comment(s): cervix - "scraped", rt ovarian tube removed due abscess., port a cath Past Anesthesia/Blood Transfusion Reactions: No Reported Reaction Past Psychological History: No Psychological Hx Reported Smoking Status: Former smoker Past Alcohol Use History: Rare Additional Past Alcohol Use History / Comment(s): quit smoking 2005, smoked for 25 yrs. Past Drug Use History: None Reported - Past Family History Mother Family Medical History: Cancer Additional Family Medical History / Comment(s): "female cancer" Medications and Allergies Home Medications Medication Instructions Recorded Confirmed Type Alendronate Sodium [Fosamax] 70 mg PO FR 09/30/23 10/04/23 History Cholecalciferol [Vitamin D3 (25 75 mcg PO DAILY 09/30/23 10/04/23 History Mcg = 1000 Iu)] Multivit with Calcium,Iron,Min 1 each PO DAILY 09/30/23 10/04/23 History [Women's Multivitamin] Allergies Allergy/AdvReac Type Severity Reaction Status Date / Time No Known Allergies Allergy Verified 10/04/23 10:21 Surgical - Exam Vital Signs Temp Pulse Resp BP Pulse Ox 97.8 F 89 16 188/86 98 10/04/23 10:00 10/04/23 10:00 10/04/23 10:00 10/04/23 10:00 10/04/23 10:00 - General well developed, no distress - Eyes PERRL, normal ocular movement - ENT normal pinna - Neck no masses - Respiratory normal expansion - Cardiovascular Rhythm: regular - Abdomen Abdomen: soft, non tender Assessment and Plan Assessment: History of anal squamous cell carcinoma. Patient will have her Port-A-Cath removed today.
[2023-10-04] MEDS ORDERED: fentaNYL (PF) 50 MCG/ML 2 ML AMP ONE (11:33)
[2023-10-04] MEDS ORDERED: PROPOFOL 10 MG/ML 20 ML VIAL IV ONE (11:33)
[2023-10-04] MEDS ORDERED: MIDAZOLAM 2 MG/2 ML VIAL ONE (11:33)
[2023-10-04] MEDS ORDERED: BUPIVACAINE (PF) 0.25% 30 ML VIAL SQ ONE ×3 (11:45→11:48)
--- NOTE | 2023-10-04 12:03 | P.OP ---
Date of Procedure: 10/04/23 Preoperative Diagnosis: History of anal squamous cell carcinoma Postoperative Diagnosis: Same Procedure(s) Performed: Removal of right subclavian Port-A-Cath Anesthesia: MAC Surgeon: Chandrakant Lin Estimated Blood Loss (ml): 5 Pathology: none sent Condition: stable Disposition: PACU Description of Procedure: The patient's placed on the operative table in the supine position. She received IV sedation. Her right chest wall was prepped and draped usual sterile fashion. The skin was incised at the port site after some local Xylocaine. Then using blunt and sharp dissection with cautery the port was dissected free and sent to pathology. The wound was checked for use history there is no bleeding seen. Skin was closed interrupted 3-0 Monocryl suture. Dermabond was applied. Patient top she will purchase sent to recovery room in stable condition.
[2023-10-04 12:34] VITALS: BP 125/78; PULSE 67
== END 2023-10-04 12:53 | disposition home or self-care (01) ==
LOC: OR 09:26
PROVIDERS: ATTEND Surgery
DX: C21.0 Malignant neoplasm of anus, unspecified (principal); M19.90 Unspecified osteoarthritis, unspecified site; K76.0 Fatty (change of) liver, not elsewhere classified; Z98.51 Tubal ligation status; Z98.891 History of uterine scar from previous surgery; Z85.048 Personal history of other malignant neoplasm of rectum, rectosigmoid junction, and anus; Z98.890 Other specified postprocedural states; Z87.891 Personal history of nicotine dependence; Z79.899 Other long term (current) drug therapy
CPT/HCPCS: 36590; J2250; J1644; J1100; J0690; J2405; J3010; J2704; J0665